=== PATIENT | male | born 1990 | race Caucasian/White ===

== ENCOUNTER 2024-04-14 19:40 | Emergency (ER) | payer BC, SELFPAY ==
[2024-04-14 19:43] VITALS: BP 151/97
[2024-04-14 20:03] VITALS: BMI 25.8
--- NOTE | 2024-04-14 21:14 | ED.GENMED ---
History of Present Illness
General
Chief Complaint: Medication Reaction
Time Seen by Provider: 04/14/24 19:52
History of Present Illness
History of Present Illness:
33-year-old male with history of depression presenting to the emergency department for continued depressive symptoms. Patient notes in the past 6 months he has been in and out of the hospital due to his depression, trialing medications, which have
not been working. He is currently only on Seroquel to help him sleep. He notes in the past few weeks he has been feeling increasingly depressed, thoughts of ending to hurt himself such as taking all of his medications. Additionally, patient notes
concern for an acute neurologic issue. He notes in the past several weeks he feels that he has been more out of it. Notes that he went to an ER on the for the symptoms, had a workup including a negative CT of his brain. Patient is requesting
EEG, MRI and additional acute neurologic workup. Patient tangential with his speech, limited historian.
Phy Exam
Physical Exam
Physical Exam:
General: Well-appearing, no clinical signs of dehydration, nontoxic and in no acute distress
HEENT: protecting airway, pupils equal and reactive, extraocular movements intact
Neck: appears supple
CV: Normal heart rate, regular rhythm
Resp: No accessory muscle use, no increased work of breathing, lungs clear to auscultation bilaterally
Abd: Soft and non-distended, no tenderness to palpation, normal bowel sounds
Extremities: No deformities, no swelling, no erythema
Neuro: alert, no focal neurologic deficit
: deferred
Rectal: deferred
Psych: Normal affect
Skin: Intact
Course
Orders/Labs/Results
Orders:
Orders
04/14/24 19:47
1:1 Observation - Suicide/ Violent Behavior As Directed
04/14/24 21:12
Alcohol Urgent
Complete Blood Count/With Diff Urgent
Comprehensive Metabolic Panel Urgent
Folate Urgent
TSH Reflex To Free T4 Urgent
Urine Drug Abuse Screen Urgent
Date Specimen was Collected: 04/14/24
Time Specimen was Collected: 20:54
Vitamin B12 Urgent
04/14/24 22:01
Crisis Consult Urgent
Reason for Consult: SI
04/14/24 22:58
Quetiapine Fumarate [Seroquel] 50 mg PO NOW STA
04/15/24 02:12
Haloperidol Lactate [Haldol] 5 mg IM NOW STA
Lorazepam [Ativan] 2 mg IM NOW STA
Abnormal Lab Results
04/14/24
21:12
Abs Immat Gran (auto) 0.1 H 10^3/uL
(0-0.05)
Absolute Neuts (auto) 6.9 H 10^3/uL
(1.4-6.5)
Absolute Monos (auto) 1.0 H 10^3/uL
(0.1-0.6)
Immature Gran % 0.6 H %
(0-0.5)
Vitamin B12 968 H pg/ml
(239-931)
Folate > 20.0 H ng/ml
(2.76-20)
Ur Tricyclics Screen Positive H
(Negative)
04/14/24 21:12
04/14/24 21:12
Vital Signs
Initial and Last Documented VS:
Initial Vital Signs
Temp Pulse Resp BP Pulse Ox
97.7 F 107 18 151/97 100
04/14/24 19:43 04/14/24 19:43 04/14/24 19:43 04/14/24 19:43 04/14/24 19:43
Last Documented Vital Signs
Temp Pulse Resp BP Pulse Ox
97.6 F 108 16 141/98 98
04/15/24 02:08 04/15/24 02:08 04/15/24 02:08 04/15/24 02:08 04/15/24 02:08
MDM/Problems Addressed
MDM/Problems Addressed:
33-year-old male with history of depression presenting to the emergency department for depression and suicidal ideation. Vital signs are significant for mild hypertension.
On exam patient resting comfortably, no acute distress or discomfort. He is awake, alert, oriented, speaking clearly. Patient is mostly concern for vague 'neurologic 'symptoms. He believes that he has dementia because he has become increasingly
forgetful. He has concern for a primary neurologic diagnosis. At this time no focal neurologic deficits. No concern for central neurologic process. Patient is afebrile, nontoxic without concern for systemic infection. Patient recently had CT
imaging of his brain, reportedly negative. No indication to repeat. Patient is requesting additional testing such as MRI and EEG which is not presently indicated given his state. No seizure activity. Do suspect the symptoms are from underlying
severe depression, which is currently not being treated. Will consult with crisis. Will send screening laboratory analysis.
21:00 - Patient had an episode where he threw himself on the floor. He remains alert, speaking clearly. No physical signs of trauma. Again without concern for neurologic process
22:30 -Labs unremarkable. Patient seen by crisis. Plan for telepsych. Patient is requesting Seroquel. Will administer
01:00 - Patient accepted to [facility], pending transport.
02:10 -patient tried to strangle himself with his sock. No significant benjamin on his neck. No stridor. Patient has become increasingly agitated. Will administer Haldol and Ativan
*Critical Care Note
Total Time (30-74mins, 75-104mins- exclusive of procedures): Not Applicable
ED Attending Note
-
Portions of this chart may have been created with voice recognition software.� Occasional wrong word or��sound alike� substitutions may have occurred due to the inherent limitations of voice recognition software.
Discharge Plan
Departure
Patient Disposition: Psych Facility
Date of Disposition: 04/15/24
Time of Disposition: 01:09
Patient with high blood pressure during this ER visit?: No
Condition: Good
Discharge Problem:
Suicidal ideations, Depression
Prescriptions:
No Action
quetiapine [Seroquel] 50 mg Tablet
50 mg PO HS
Referrals:
PRIVATE,PHYSICIAN [Family Provider] -
Activity Restrictions/Additional Instructions:
You were seen in the emergency department for depression and suicidal thoughts
You were found to have normal blood work. You are being sent to [facility] and you are medically clear for their assessment.
Please follow-up closely with your primary care physician.
Return to the emergency department for any worsening of your symptoms, or any development of chest pain, difficulty breathing, abdominal pain with persistent vomiting and inability to tolerate food or liquid by mouth (concern for dehydration),
weakness, headache or confusion, fever greater than 100.4, or any additional symptoms that are concerning to you.
Thank you for choosing [facility].
Interventions
Interventions:
*Risk Screen - Suicide Last Done: 04/14/24 19:46
*General Assessment Last Done: 04/14/24 20:03
*Neglect/Abuse Screening Last Done: 04/14/24 20:03
*ED COVID-19 Vaccine History Last Done: 04/15/24 00:52
ED-Skin Assessment Last Done: 04/14/24 20:03
ED- Pulmonary Assessment Last Done: 04/14/24 20:03
ED-EENT Assessment Last Done: 04/14/24 20:03
Discharge Date and Time
Print Language: AMERICAN
[2024-04-14 21:21] LABS: % Basophils 0.6 % (0-2); % Immature Granulocytes 0.6 % (0-0.5); % Lymphocytes 25.2 % (20.5-51.1); % Monocytes 8.8 % (1.7-9.3); % Neutrophils 63.8 % (42.2-75.2); Absolute Basophils 0.1 10^3/uL (0-0.2); Absolute Eosinophils 0.1 10^3/uL (0-0.7); Absolute Immature Granulocytes 0.1 10^3/uL (0-0.05); Absolute Lymphocytes 2.7 10^3/uL (1.2-3.4); Absolute Neutrophils 6.9 10^3/uL (1.4-6.5); Mean Corp Hgb Conc. 35.7 g/dL (33.0-37.0); Mean Corpuscular Hgb 30.9 pg (27.0-31.0); Mean Corpuscular Volume 86.4 fL (80.0-94.0); Mean Platelet Volume 10.2 fL (7.4-10.4); Nucleated Red Blood Cells % 0 % (-); Platelet Count 201 10^3/uL (130-400); Red Blood Cell Count 4.86 10^6/uL (4.70-6.10); Red Cell Dist. Width 12.2 % (11.5-14.5); White Blood Cell Count 10.8 10^3/uL (4.8-10.8)
[2024-04-14 21:39] LABS: Amphetamines Negative (Negative); Barbiturates Negative (Negative); Benzodiazepines Negative (Negative); Buprenorphine Negative (Negative); Cocaine Negative (Negative); Marijuana Negative (Negative); Methadone Negative (Negative); Methamphetamines Negative (Negative); Opiates Negative (Negative); Phencyclidine Negative (Negative)
[2024-04-14 21:40] LABS: Tricyclic Antidepressants Positive (Negative)
[2024-04-14 21:43] LABS: ALT (SGPT) 30 U/L (0-50); AST (SGOT) 28 U/L (17-59); Albumin 4.6 g/dl (3.5-5.0); Alcohol None Detected; Alkaline Phosphatase 78 U/L (38-126); Blood Urea Nitrogen 12 mg/dl (9-20); Calcium 10.1 mg/dl (8.4-10.2); Carbon Dioxide 25 mmol/L (22-30); Chloride 103 mmol/L (98-107); Estimated Creatinine Clearance > 125 ml/min; Glucose 96 mg/dl (70-99); Potassium 4.1 mmol/L (3.5-5.1); Sodium 138 mmol/L (135-145); Total Bilirubin 0.5 mg/dl (0.2-1.3); eGFR > 60.00
[2024-04-14 22:12] LABS: TSH Reflex To Free T4 0.75 uIU/ml (0.47-4.68)
[2024-04-14 22:47] LABS: Folate > 20.0 ng/ml (2.76-20); Vitamin B12 968 pg/ml (239-931)
[2024-04-14] MEDS: SEROQUEL 50 MG PO (23:02)
[2024-04-15 02:08] VITALS: BP 141/98
[2024-04-15] MEDS: ATIVAN 2 MG IM (02:19)
[2024-04-15] MEDS: HALDOL 5 MG IM (02:19)
[2024-04-15 02:50] VITALS: BP 124/68
== END 2024-04-15 03:19 ==
LOC: EMR 19:40
PROVIDERS: EMERGENCY PHYSICIAN Student in an Organized Health Care Education/Training Program
DX: R45.851 Suicidal ideations (principal); F32.A Depression, unspecified
CPT/HCPCS: 99285; 96372 ×2; 80053; 80306; 82077; 82607; 82746; 84443; 85025